=== PATIENT | female | born 1970 | race American Indian/Alaskan Native ===

== ENCOUNTER 2016-11-29 12:29 | Emergency (ER) | payer OTHER ==
[2016-11-29 13:01] VITALS: BMI 50.4
[2016-11-29 14:20] LABS: RBC URINE 2 /hpf (0-3); URINE BACTERIA RARE (<OCC); URINE BILIRUBIN NEGATIVE (NEGATIVE); URINE BLOOD NEGATIVE (NEGATIVE); URINE COLOR Yellow (YELLOW); URINE GLUCOSE (UA) NORMAL (Normal); URINE KETONE NEGATIVE (NEGATIVE); URINE LEUKOCYTE ESTERASE NEG Leu/uL (Negative); URINE PROTEIN NEGATIVE (NEGATIVE); URINE UROBILINOGEN NORMAL mg/dL (0.2-1.0); WBC URINE 1 /hpf (0-5)
[2016-11-29] MEDS ORDERED: Oxycodone/Acetaminophen 5/325 mg Tab PO STA (14:26)
[2016-11-29] MEDS ORDERED: Oxycodone/Acetaminophen 5/325 mg Tab ONE (14:39)
--- NOTE | 2016-11-29 15:29 | C.PDOC ---
History Of Present Illness 46 y/o female presents to the ED with complains of urinary frequency x2 months. Pt states she has to urinate every 2-3 minutes, denies pain. Pt also complains of left hip and lower back pain x1 week s/p slip and fell on ice. Pt reports subjective fever last night. Pt denies weakness, numbness, incontinence, abdominal pain, dysuria or any other complaints. Time Seen by Provider: 11/29/16 13:59 Chief Complaint (Nursing): Female Genitourinary History Per: Patient History/Exam Limitations: no limitations Onset/Duration Of Symptoms: Days Current Symptoms Are (Timing): Still Present Quality Of Discomfort: "Pain" Severity: Mild Previous Symptoms: None Associated Symptoms: None Recent travel outside of the [place]: No Past Medical History Reviewed: Historical Data, Nursing Documentation, Vital Signs Vital Signs: Last Vital Signs Temp 98.1 F 11/29/16 17:19 Pulse 100 H 11/29/16 17:19 Resp 20 11/29/16 17:19 BP 116/78 11/29/16 17:19 Pulse Ox 98 11/29/16 17:26 - Medical History PMH: Anemia, Anxiety, Bronchitis, Depression Family History: States: Unknown Family Hx - Social History Hx Tobacco Use: No Hx Alcohol Use: No Hx Substance Use: No - Immunization History Hx Tetanus Toxoid Vaccination: No Hx Influenza Vaccination: No Hx Pneumococcal Vaccination: No Review Of Systems Except As Marked, All Systems Reviewed And Found Negative. Constitutional: Positive for: Fever Gastrointestinal: Negative for: Abdominal Pain Genitourinary: Positive for: Frequency. Negative for: Dysuria, Incontinence Musculoskeletal: Positive for: Back Pain Neurological: Negative for: Weakness, Numbness Physical Exam - Physical Exam Appears: Non-toxic, No Acute Distress, Other (morbidly obese) Skin: Warm, Dry, No Rash Head: Atraumatic, Normacephalic Neck: Normal ROM, Supple Chest: Symmetrical Cardiovascular: Rhythm Regular, No Murmur Respiratory: Normal Breath Sounds, No Rales, No Rhonchi, No Wheezing Gastrointestinal/Abdominal: Soft Back: Paraspinal Tenderness (lower back) Extremity: Normal ROM, Tenderness (left hip), No Deformity Pulses: Left Dorsalis Pedis: Normal Neurological/Psych: Oriented x3, Normal Motor, Normal Sensation ED Course And Treatment O2 Sat by Pulse Oximetry: 98 (on room air) Pulse Ox Interpretation: Normal - Other Rad Hip xray X-Ray: Viewed By Me, Read By Radiologist Interpretation: Accession No. : [id number]. Patient Name / ID : RUTHANN MARSHALL / [id number]. Exam Date : 11/29/2016 14:25:31 ( Approved ). Study Comment : Sex / Age : F / 46Y. Creator : SERA DAVALOS MD. Dictator : SERA DAVALOS MD. Manager Of Allied Health Services : Lapel Padder : SERA DAVALOS MD. Approver2 : Report Date : 11/30/2016 10:12:34. My Comment : . PROCEDURE: Radiographs of the pelvis and left hip joint. HISTORY: Fall. COMPARISON: 12/17/2011. TECHNIQUE : Frontal radiograph of the pelvis and left hip joint. FINDINGS: The pelvic ring is intact. There is no acute displaced fracture or bone destruction. There is diffuse bone demineralization. There is an old fracture deformity in the right pubic bone. There is interval progression of severe degenerative osteoarthrosis in both hip joints with complete loss of joint spaces and marginal osteophytes as well as subarticular cystic changes in the acetabulum and femoral heads. There is flattening of the left femoral head, underlying osteonecrosis cannot be excluded. There are phleboliths in the pelvis. Both sacroiliac joints are normal. The periarticular soft tissues are normal. IMPRESSION: No acute displaced fracture or dislocation. Interval progression of severe degenerative osteoarthrosis in both hip joints, worse on the left with flattening of the left femoral head. Underlying osteonecrosis is not excluded. LS xray X-Ray: Viewed By Me, Read By Radiologist Interpretation: Accession No. : [id number]. Patient Name / ID : RUTHANN MARSHALL / [id number]. Exam Date : 11/29/2016 14:25:18 ( Approved ). Study Comment : Sex / Age : F / 46Y. Creator : Hoang Son MD. Dictator : Hoang Son MD. Manager Of Allied Health Services : Lapel Padder : Hoang Son MD. Approver2 : Report Date : 11/29/2016 16:41:37. My Comment : . PROCEDURE: Radiographs of the Lumbar Spine. HISTORY: FALL. COMPARISON: No prior. FINDINGS: BONES: The current study reveals no definitive evidence of acute compression fractures nor retropulsed fragments. There are however of mild multilevel fish-mouth endplate deformities involving the lower thoracic segments. . The vertebral bodies exhibit relatively normal stature and alignment. Facets normally aligned. If symptoms persist or occult fracture suspected clinically, consider followup CT scan. DISC SPACES: Multilevel degenerative spondylosis most notably affecting the lower of thoracic and lower lower lumbar disc space levels. . The lumbar disc spaces are relatively maintained. Facets are mildly hypertrophic at the L5-S1 through L3-L4 levels in somewhat decreasing order of severity. OTHER FINDINGS: None. IMPRESSION: No definitive evidence of acute fracture however multilevel chronic appearing fish-mouth endplate deformities in the lower thoracic region felt present. . Mild multilevel degenerative spondylosis. Progress Note: Plan: percocet, toradol, XR lumbar spine and left hip. On reassessment, patient is resting comfortably, afebrile and is in no acute distress. Patient was instructed to follow up with physician/clinic in 1-2 days for further evaluation. Reassessment Condition: Improved Disposition - Disposition Referrals: Lacy Canales MD [Staff Provider] - Disposition: HOME/ ROUTINE Disposition Time: 17:25 Condition: IMPROVED Additional Instructions: Follow up with PMD within 1-2 days. Return to ED if feel worse. Prescriptions: oxyCODONE/Acetaminophen [Percocet 5/325 mg Tab] 1 tab PO QID PRN #30 tab PRN Reason: Pain Instructions: Hip Pain (ED) - Clinical Impression Clinical Impression: Low back pain, Hip pain - PA / [employer] / Resident Statement MD/DO has reviewed & agrees with the documentation as recorded. - Scribe Statement The provider has reviewed the documentation as recorded by the Scribe Abdon Cunningham All medical record entries made by the Brendenibe were at my direction and personally dictated by me. I have reviewed the chart and agree that the record accurately reflects my personal performance of the history, physical exam, medical decision making, and the department course for this patient. I have also personally directed, reviewed, and agree with the discharge instructions and disposition.
--- NOTE | 2016-11-29 16:43 | RAD ---
PROCEDURE: Radiographs of the Lumbar Spine. HISTORY: FALL COMPARISON: No prior. FINDINGS: BONES: The current study reveals no definitive evidence of acute compression fractures nor retropulsed fragments. There are however of mild multilevel fish-mouth endplate deformities involving the lower thoracic segments. . The vertebral bodies exhibit relatively normal stature and alignment. Facets normally aligned. If symptoms persist or occult fracture suspected clinically, consider followup CT scan. DISC SPACES: Multilevel degenerative spondylosis most notably affecting the lower of thoracic and lower lower lumbar disc space levels. . The lumbar disc spaces are relatively maintained. Facets are mildly hypertrophic at the L5-S1 through L3-L4 levels in somewhat decreasing order of severity. OTHER FINDINGS: None. IMPRESSION: No definitive evidence of acute fracture however multilevel chronic appearing fish-mouth endplate deformities in the lower thoracic region felt present. . Mild multilevel degenerative spondylosis.
[2016-11-29 17:20] VITALS: BP 116/78; PULSE 100; RESP 20; TEMP 98.1
[2016-11-29 17:27] VITALS: O2SAT 98
--- NOTE | 2016-11-30 10:14 | RAD ---
PROCEDURE: Radiographs of the pelvis and left hip joint HISTORY: Fall COMPARISON: 12/17/2011 TECHNIQUE: Frontal radiograph of the pelvis and left hip joint. FINDINGS: The pelvic ring is intact. There is no acute displaced fracture or bone destruction. There is diffuse bone demineralization. There is an old fracture deformity in the right pubic bone. There is interval progression of severe degenerative osteoarthrosis in both hip joints with complete loss of joint spaces and marginal osteophytes as well as subarticular cystic changes in the acetabulum and femoral heads. There is flattening of the left femoral head, underlying osteonecrosis cannot be excluded. There are phleboliths in the pelvis. Both sacroiliac joints are normal. The periarticular soft tissues are normal. IMPRESSION: No acute displaced fracture or dislocation. Interval progression of severe degenerative osteoarthrosis in both hip joints, worse on the left with flattening of the left femoral head. Underlying osteonecrosis is not excluded.
== END 2016-11-29 18:03 | disposition home or self-care (01) ==
LOC: C.ER 12:29
DX: M54.5 Low back pain (principal); M25.552 Pain in left hip